=== PATIENT | female | born 1975 | race Hispanic/Latino ===

== ENCOUNTER 2021-05-02 09:50 | Inpatient (IN) | payer MEDICAID ==
--- NOTE | 2021-05-02 10:20 | Event Note ---
ED Screening Note Date of service: 05/02/21 Time: 10:19 ED Screening Note: Patient complains of abdominal pain for a few days History of GERD, states it feels like her GERD flares and that she has been taking aspirin Patient diagnosed with COVID-19 on 04/26 She denies shortness of breath however she is noted to have a O2 saturation of 85% on room air No chest pain per patient This initial assessment/diagnostic orders/clinical plan/treatment(s) is/are subject to change based on patients health status, clinical progression and re- assessment by fellow clinical providers in the ED. Further treatment and workup at subsequent clinical providers discretion. Patient/guardian urged not to elope from the ED as their condition may be serious if not clinically assessed and managed. Initial orders include: Labs Chest x-ray
[2021-05-02] MEDS ORDERED: dexAMETHasone 20 MG/5 ML VIAL IV ONE (10:47)
[2021-05-02] MEDS ORDERED: ONDANSETRON 4 MG/2 ML INJ IV ONE (10:49)
[2021-05-02] MEDS ORDERED: fentaNYL 100 MCG/2 ML INJ IV ONE (10:49)
[2021-05-02] MEDS ORDERED: FAMOTIDINE 20 MG/2 ML INJ IV ONE (10:49)
--- NOTE | 2021-05-02 10:50 | Emergency Department Report ---
HPI - General Chief Complaint: Abdominal Pain PUI?: Yes Time Seen by Provider: 05/02/21 10:14 - HPI HPI: Room 24 The patient is a 45-year-old female present with a chief complaint of abdominal pain. The patient states for the past 2 days she has had pain in the midepigastric and left upper quadrant is been intermittent in nature. Patient also admits to nausea with dry heaves but denies diarrhea. Patient states she has not noticed a relationship with her abdominal pain with food but states she has had pain after taking ibuprofen to treat her fever. Patient states she developed a fever 04/26/2021 when she was diagnosed with Covid. Patient states she had a slight cough at that time but none currently. Patient denies shortness of breath or being on oxygen at home. The patient arrived to triage today she was found to be hypoxic to 85% on room air. Patient currently gets her abdominal pain a score 4/10 ED Past Medical Hx - Past Medical History Hx Hypertension: Yes Hx GERD: Yes Additional medical history: abd ulcers, hypercholesterolemia, porphyria - Surgical History Hx Cholecystectomy: Yes Additional Surgical History: tubal ligation - Family History Family history: no significant - Social History Smoking Status: Never Smoker Substance Use Type: None (Denies illicit drug) - Medications Home Medications: Home Medications Medication Instructions Recorded Confirmed Last Taken Type Sulfamethoxazole/Trimethoprim 07/29/13 07/29/13 Unknown History [Bactrim DS] HYDROcodone/APAP 5-325 [[place] 1 each PO Q6HR PRN #20 tablet 07/30/13 Unknown Rx 5/325 mg] DOXYCYCLINE Hyclate [Vibramycin 100 mg PO BID #20 capsule 11/05/13 Unknown Rx CAP] Pantoprazole [Protonix] 40 mg PO BID #30 tablet 11/05/13 Unknown Rx Ranitidine HCl [Zantac] 300 mg PO QDAY #30 tablet 11/05/13 Unknown Rx ED Review of Systems ROS: Stated complaint: ABD PAIN Other details as noted in HPI Constitutional: fever Eyes: denies: eye pain ENT: denies: throat pain Respiratory: cough. denies: shortness of breath Cardiovascular: denies: chest pain Endocrine: no symptoms reported Gastrointestinal: abdominal pain, nausea. denies: vomiting, diarrhea Genitourinary: denies: dysuria Musculoskeletal: denies: back pain Neurological: denies: headache Physical Exam - Physical Exam Vital Signs: Vital Signs 05/02/21 05/02/21 09:55 10:40 Temperature 99.3 F Pulse Rate 100 H 98 H Respiratory 20 20 Rate Blood Pressure 146/77 Blood Pressure 132/88 [Right] O2 Sat by Pulse 85 97 Oximetry Physical Exam: GENERAL: The patient is well-developed well-nourished female lying on stretcher not appear to be in acute distress. [] HEENT: Normocephalic. Atraumatic. Extraocular motions are intact. Patient has moist mucous membranes. NECK: Supple. Trachea midline CHEST/LUNGS: Clear to auscultation. There is no respiratory distress noted. HEART/CARDIOVASCULAR: Regular. There is no tachycardia. There is no gallop rub or murmur. ABDOMEN: Abdomen is soft, with discomfort to palpation in the left upper quadrant and left lower quadrant. There is no rebound or guarding. Patient has normal bowel sounds. There is no abdominal distention. SKIN: There is no rash. There is no edema. There is no diaphoresis. NEURO: The patient is awake, alert, and oriented. The patient is cooperative. The patient has no focal neurologic deficits. The patient has normal speech. GCS 15 MUSCULOSKELETAL: There is no evidence of acute injury. ED Course Vital Signs 05/02/21 05/02/21 09:55 10:40 Temperature 99.3 F Pulse Rate 100 H 98 H Respiratory 20 20 Rate Blood Pressure 146/77 Blood Pressure 132/88 [Right] O2 Sat by Pulse 85 97 Oximetry ED Medical Decision Making - Lab Data Result diagrams: 05/02/21 10:47 05/02/21 10:47 Laboratory Tests 05/02/21 05/02/21 05/02/21 10:45 10:47 10:47 WBC 6.5 RBC 4.88 Hgb 13.7 Hct 41.8 MCV 86 MCH 28 MCHC 33 RDW 17.1 H Plt Count 208 Lymph % (Auto) 10.0 L [place] % (Auto) 5.8 Eos % (Auto) 0.1 Baso % (Auto) 0.2 Lymph # (Auto) 0.6 L [place] # (Auto) 0.4 Eos # (Auto) 0.0 Baso # (Auto) 0.0 Seg Neutrophils % 83.9 H Seg Neutrophils # 5.4 D-Dimer Sodium 138 Potassium 3.3 L Chloride 95.1 L Carbon Dioxide 31 H Anion Gap 15 BUN 12 Creatinine 0.6 Estimated GFR > 60 BUN/Creatinine Ratio 20 Glucose 112 H Lactic Acid 1.30 Calcium 8.2 L Ferritin Total Bilirubin 0.40 AST 14 ALT 14 Alkaline Phosphatase 130 H Lactate Dehydrogenase C-Reactive Protein Total Protein 7.2 Albumin 3.3 L Albumin/Globulin Ratio 0.8 Lipase 10 L HCG, Qual Urine Color Urine Turbidity Urine pH Ur Specific [place] Urine Protein Urine Glucose (UA) Urine Ketones Urine Blood Urine Nitrite Urine Bilirubin Urine Urobilinogen Ur Leukocyte Esterase Urine WBC (Auto) Urine RBC (Auto) U Epithel Cells (Auto) Urine Mucus 05/02/21 05/02/21 05/02/21 10:47 10:47 10:47 WBC RBC Hgb Hct MCV MCH MCHC RDW Plt Count Lymph % (Auto) [place] % (Auto) Eos % (Auto) Baso % (Auto) Lymph # (Auto) [place] # (Auto) Eos # (Auto) Baso # (Auto) Seg Neutrophils % Seg Neutrophils # D-Dimer 208.60 Sodium Potassium Chloride Carbon Dioxide Anion Gap BUN Creatinine Estimated GFR BUN/Creatinine Ratio Glucose 108 H Lactic Acid Calcium Ferritin Total Bilirubin AST ALT Alkaline Phosphatase Lactate Dehydrogenase 266 H C-Reactive Protein 7.80 H Total Protein Albumin Albumin/Globulin Ratio Lipase HCG, Qual Negative Urine Color Urine Turbidity Urine pH Ur Specific [place] Urine Protein Urine Glucose (UA) Urine Ketones Urine Blood Urine Nitrite Urine Bilirubin Urine Urobilinogen Ur Leukocyte Esterase Urine WBC (Auto) Urine RBC (Auto) U Epithel Cells (Auto) Urine Mucus 05/02/21 05/02/21 10:47 13:26 WBC RBC Hgb Hct MCV MCH MCHC RDW Plt Count Lymph % (Auto) [place] % (Auto) Eos % (Auto) Baso % (Auto) Lymph # (Auto) [place] # (Auto) Eos # (Auto) Baso # (Auto) Seg Neutrophils % Seg Neutrophils # D-Dimer Sodium Potassium Chloride Carbon Dioxide Anion Gap BUN Creatinine Estimated GFR BUN/Creatinine Ratio Glucose Lactic Acid Calcium Ferritin 50.2 Total Bilirubin AST ALT Alkaline Phosphatase Lactate Dehydrogenase C-Reactive Protein Total Protein Albumin Albumin/Globulin Ratio Lipase HCG, Qual Urine Color Yellow Urine Turbidity Clear Urine pH 5.0 Ur Specific [place] 1.020 Urine Protein 100 mg/dl Urine Glucose (UA) Neg Urine Ketones Neg Urine Blood Neg Urine Nitrite Neg Urine Bilirubin Neg Urine Urobilinogen < 2.0 Ur Leukocyte Esterase Neg Urine WBC (Auto) 1.0 Urine RBC (Auto) < 1.0 U Epithel Cells (Auto) < 1.0 Urine Mucus Few - Radiology Data Radiology results: report reviewed (CTA chest, CT abdomen pelvis), image reviewed (CTA chest, CT abdomen pelvis) [facility] [address] [place] [address] Cat Scan Report Signed Patient: MARU ALBRECHT MR#: [id number] : 1975 Acct:[id number] Age/Sex: 45 / F ADM Date: 05/02/21 Loc: ED Attending Dr: Ordering Physician: BIJU CULLEN MD Date of Service: 05/02/21 Procedure(s): CT angio chest Accession Number(s): [id number] cc: BIJU CULLEN MD CTA chest with contrast CT abdomen and pelvis with contrast INDICATION : Left-sided abdominal pain, nausea Hypoxia, Covid positive OMNI 350 100 ML. TECHNIQUE: Axial imaging performed through the chest, with contrast bolus timing set to maximize opacification of the pulmonary arteries. 3-plane MIP reformatted images were obtained. Axial imaging also performed through the abdomen and pelvis with the use of intravenous contrast. All CT scans at this location are performed using CT dose reduction for ALARA by means of automated exposure control. 100 mL of intravenous contrast administered. COMPARISON: CT abdomen/pelvis from 07/30/2013 FINDINGS: CTA chest: Contrast bolus timing is adequate with no filling defect present to suggest PTE. Normal heart size. There are several shoddy mediastinal and hilar lymph nodes. There is also patchy multifocal groun dglass airspace disease and also diffuse nodularity. No pleural effusion identified. Degenerative changes are present in the spine with nothing acute. CT abdomen/pelvis: The liver is unremarkable. Gallbladder surgically absent. The spleen is enlarged but otherwise unremarkable. The pancreas, right adrenal gland, kidneys, and proximal GI tract appear unremarkable. There is a stable left adrenal adenoma. Urinary bladder and reproductive organs are unremarkable with no pelvic free fluid or acute colonic abnormality identified. Mild degenerative changes are present in the spine with nothing acute. There are L5 pars defects with grade 1 anterolisthesis of L5 on S1 and advanced discogenic DJD also at this level. IMPRESSION: 1. Negative for PTE. 2. Moderate patchy multifocal airspace disease suggesting changes of Covid pneumonia; however, there is also underlying nodularity. Recommend follow-up CT chest within 2-3 months to ensure resolution and exclude any underlying process. 3. Nothing acute in the abdomen. Signer Name: Rigoberto Miller MD Signed: 05/02/2021 2:24 PM Workstation Name: [id number] Transcribed By: ANTONIA Dictated By: Rigoberto Miller MD Electronically Authenticated By: Rigoberto Miller MD Signed Date/Time: 05/02/211423 DD/ 14 TD/TT: Print Cancel - Differential Diagnosis Covid pneumonia, hypoxia, peptic ulcer disease, gastritis, diverticulitis Critical care attestation.: If time is entered above; I have spent that time in minutes in the direct care of this critically ill patient, excluding procedure time. ED Disposition Clinical Impression: Hypoxia, Pneumonia due to COVID-19 virus, Abdominal pain Disposition: ADMITTED INPATIENT Is pt being admited?: Yes Does the pt Need Aspirin: No Condition: Fair Instructions: Bacterial Pneumonia (ED), Abdominal Pain (ED) Referrals: PRIMARY CARE, [Primary Care Provider] - 3-5 Days Time of Disposition: 15:01 (Hospitalist called (Dr. Lao))
[2021-05-02 11:18] LABS: Basophils % (Auto) 0.2 % (0.0-1.8); Eosinophils % (Auto) 0.1 % (0.0-4.3); Hematocrit 41.8 % (30.3-42.9); Hemoglobin 13.7 gm/dl (10.1-14.3); Lymphocytes # (Auto) 0.6 K/mm3 (1.2-5.4); Mean Corpuscular HGB Conc 33 % (30-34); Mean Corpuscular Volume 86 fl (79-97); Monocytes # (Auto) 0.4 K/mm3 (0.0-0.8); Monocytes % (Auto) 5.8 % (0.0-7.3); Platelet Count 208 K/mm3 (140-440); Red Blood Count 4.88 M/mm3 (3.65-5.03); Red Cell Distribution Width 17.1 % (13.2-15.2)
[2021-05-02 12:13] LABS: Alanine Aminotransferase 14 units/L (7-56); Albumin 3.3 g/dL (3.9-5); Blood Urea Nitrogen 12 mg/dL (7-17); Calcium 8.2 mg/dL (8.4-10.2); Hemolysis Index 3
[2021-05-02 12:14] LABS: C-Reactive Protein 7.8 mg/dL (0.00-1.30)
[2021-05-02 12:17] LABS: BUN/Creatinine Ratio 20
[2021-05-02 13:54] LABS: Bilirubin,Urine NEG (Negative); Blood,Urine NEG (Negative); Color,Urine Yellow (Yellow); Mucus,Urine FEW /HPF; RBC,Urine < 1.0 /HPF (0.0-6.0); Urobilinogen,Urine < 2.0 mg/dL (<2.0)
--- NOTE | 2021-05-02 14:28 | Cat Scan Report ---
CTA chest with contrast CT abdomen and pelvis with contrast INDICATION : Left-sided abdominal pain, nausea Hypoxia, Covid positive OMNI 350 100 ML. TECHNIQUE: Axial imaging performed through the chest, with contrast bolus timing set to maximize opa cification of the pulmonary arteries. 3-plane MIP reformatted images were obtained. Axial imaging als o performed through the abdomen and pelvis with the use of intravenous contrast. All CT scans at this location are performed using CT dose reduction for ALARA by means of automated exposure control. 100 mL of intravenous contrast administered. COMPARISON: CT abdomen/pelvis from 07/30/2013 FINDINGS: CTA chest: Contrast bolus timing is adequate with no filling defect present to suggest PTE. Normal heart size. T here are several shoddy mediastinal and hilar lymph nodes. There is also patchy multifocal groundglas s airspace disease and also diffuse nodularity. No pleural effusion identified. Degenerative changes are present in the spine with nothing acute. CT abdomen/pelvis: The liver is unremarkable. Gallbladder surgically absent. The spleen is enlarged but otherwise unrema rkable. The pancreas, right adrenal gland, kidneys, and proximal GI tract appear unremarkable. There is a stable left adrenal adenoma. Urinary bladder and reproductive organs are unremarkable with no pelvic free fluid or acute colonic a bnormality identified. Mild degenerative changes are present in the spine with nothing acute. There a re L5 pars defects with grade 1 anterolisthesis of L5 on S1 and advanced discogenic DJD also at this level. IMPRESSION: 1. Negative for PTE. 2. Moderate patchy multifocal airspace disease suggesting changes of Covid pneumonia; however, there is also underlying nodularity. Recommend follow-up CT chest within 2-3 months to ensure resolution an d exclude any underlying process. 3. Nothing acute in the abdomen. Signer Name: Rigoberto Miller MD Signed: 05/02/2021 2:24 PM Workstation Name: [id number]
--- NOTE | 2021-05-02 17:35 | History and Physical Report ---
History of Present Illness Date of examination: 05/02/21 Date of admission: 05/02/21 15:07 Chief complaint: Shortness of breath and fever off-and-on for 5 days Abdominal pain off-and-on for 5 days History of present illness: 45-year-old female with morbid obesity and GERD was recently diagnosed with coronavirus infection around 04/26/2021.. Patient has been taking nonsteroidal anti-inflammatory drugs for fever. Patient has cough and some shortness of breath. In the triage area patient was hypoxic and oxygen saturations were 85% on room air. Patient is not on oxygen at home. No loss of taste or smell. Patient is unvaccinated. Patient is otherwise comfortable. - Past Medical History --Hypertension: Yes --GERD: Yes Additional medical history: abd ulcers, hypercholesterolemia, porphyria - Surgical History --Cholecystectomy: Yes --Additional Surgical History: tubal ligation - Family History --no significant - Social History --Smoking Status: Never Smoker --Substance Use Type: None (Denies illicit drug) - Medications Home Medications: Home Medications Medication Instructions Recorded Confirmed Last Taken Type Sulfamethoxazole/Trimethoprim 07/29/13 07/29/13 Unknown History [Bactrim DS] HYDROcodone/APAP 5-325 [[place] 1 each PO Q6HR PRN #20 tablet 07/30/13 Unknown Rx 5/325 mg] DOXYCYCLINE Hyclate [Vibramycin 100 mg PO BID #20 capsule 11/05/13 Unknown Rx CAP] Pantoprazole [Protonix] 40 mg PO BID #30 tablet 11/05/13 Unknown Rx Ranitidine HCl [Zantac] 300 mg PO QDAY #30 tablet 11/05/13 Unknown Rx Review of Systems ROS: Stated complaint: ABD PAIN Other details as noted in HPI Constitutional: fever Eyes: denies: eye pain ENT: denies: throat pain Respiratory: cough. denies: shortness of breath Cardiovascular: denies: chest pain Endocrine: no symptoms reported Gastrointestinal: abdominal pain, nausea. denies: vomiting, diarrhea Genitourinary: denies: dysuria Musculoskeletal: denies: back pain Neurological: denies: headache Medications and Allergies Allergies Allergy/AdvReac Type Severity Reaction Status Date / Time azithromycin Allergy Rash Verified 05/02/21 09:58 Penicillins Allergy Unknown Verified 07/29/13 23:16 Home Medications Medication Instructions Recorded Confirmed Last Taken Type Sulfamethoxazole/Trimethoprim 07/29/13 07/29/13 Unknown History [Bactrim DS] HYDROcodone/APAP 5-325 [[place] 1 each PO Q6HR PRN #20 tablet 07/30/13 Unknown Rx 5/325 mg] DOXYCYCLINE Hyclate [Vibramycin 100 mg PO BID #20 capsule 11/05/13 Unknown Rx CAP] Pantoprazole [Protonix] 40 mg PO BID #30 tablet 11/05/13 Unknown Rx Ranitidine HCl [Zantac] 300 mg PO QDAY #30 tablet 11/05/13 Unknown Rx Exam - Constitutional Vitals: Temp Pulse Resp BP Pulse Ox 99.3 F 89 22 131/71 99 05/02/21 09:55 05/02/21 16:38 05/02/21 16:38 05/02/21 16:38 05/02/21 16:38 General appearance: Present: mild distress, well-nourished - EENT Eyes: Present: PERRL ENT: hearing intact, clear oral mucosa - Neck Neck: Present: supple, normal ROM - Respiratory Respiratory effort: normal Respiratory: bilateral: CTA - Cardiovascular Heart rate: 78 Rhythm: regular Heart Sounds: Present: S1 & S2. Absent: rub, click - Extremities Extremities: pulses symmetrical, No edema Peripheral Pulses: within normal limits - Abdominal General gastrointestinal: Present: soft, non-tender, non-distended, normal bowel sounds Female genitourinary: Present: normal - Rectal Rectal Exam: deferred - Integumentary Integumentary: Present: clear, warm, dry - Musculoskeletal Musculoskeletal: gait normal, strength equal bilaterally - Psychiatric Psychiatric: appropriate mood/affect, intact judgment & insight - Neurologic Neurologic: CNII-XII intact, moves all extremities - Allied Health Allied health notes reviewed: nursing, case management Results - Labs CBC & Chem 7: 05/03/21 04:17 05/03/21 04:17 Labs: Laboratory Last Values WBC 6.5 K/mm3 (4.5-11.0) 05/02/21 10:47 RBC 4.88 M/mm3 (3.65-5.03) 05/02/21 10:47 Hgb 13.7 gm/dl (10.1-14.3) 05/02/21 10:47 Hct 41.8 % (30.3-42.9) 05/02/21 10:47 MCV 86 fl (79-97) 05/02/21 10:47 MCH 28 pg (28-32) 05/02/21 10:47 MCHC 33 % (30-34) 05/02/21 10:47 RDW 17.1 % (13.2-15.2) H 05/02/21 10:47 Plt Count 208 K/mm3 (140-440) 05/02/21 10:47 Lymph % (Auto) 10.0 % (13.4-35.0) L 05/02/21 10:47 [place] % (Auto) 5.8 % (0.0-7.3) 05/02/21 10:47 Eos % (Auto) 0.1 % (0.0-4.3) 05/02/21 10:47 Baso % (Auto) 0.2 % (0.0-1.8) 05/02/21 10:47 Lymph # (Auto) 0.6 K/mm3 (1.2-5.4) L 05/02/21 10:47 [place] # (Auto) 0.4 K/mm3 (0.0-0.8) 05/02/21 10:47 Eos # (Auto) 0.0 K/mm3 (0.0-0.4) 05/02/21 10:47 Baso # (Auto) 0.0 K/mm3 (0.0-0.1) 05/02/21 10:47 Seg Neutrophils % 83.9 % (40.0-70.0) H 05/02/21 10:47 Seg Neutrophils # 5.4 K/mm3 (1.8-7.7) 05/02/21 10:47 D-Dimer 208.60 ng/mlDDU (0-234) 05/02/21 10:47 Sodium 138 mmol/L (137-145) 05/02/21 10:47 Potassium 3.3 mmol/L (3.6-5.0) L 05/02/21 10:47 Chloride 95.1 mmol/L (98-107) L 05/02/21 10:47 Carbon Dioxide 31 mmol/L (22-30) H 05/02/21 10:47 Anion Gap 15 mmol/L 05/02/21 10:47 BUN 12 mg/dL (7-17) 05/02/21 10:47 Creatinine 0.6 mg/dL (0.6-1.2) 05/02/21 10:47 Estimated GFR > 60 ml/min 05/02/21 10:47 BUN/Creatinine Ratio 20 % 05/02/21 10:47 Glucose 108 mg/dL (65-100) H 05/02/21 10:47 Glucose 112 mg/dL (65-100) H 05/02/21 10:47 Lactic Acid 1.30 mmol/L (0.7-2.0) 05/02/21 10:45 Calcium 8.2 mg/dL (8.4-10.2) L 05/02/21 10:47 Ferritin 50.2 ng/mL (10.0-200.0) 05/02/21 10:47 Total Bilirubin 0.40 mg/dL (0.1-1.2) 05/02/21 10:47 AST 14 units/L (5-40) 05/02/21 10:47 ALT 14 units/L (7-56) 05/02/21 10:47 Alkaline Phosphatase 130 units/L (35-129) H 05/02/21 10:47 Lactate Dehydrogenase 266 units/L (91-180) H 05/02/21 10:47 C-Reactive Protein 7.80 mg/dL (0.00-1.30) H 05/02/21 10:47 Total Protein 7.2 g/dL (6.3-8.2) 05/02/21 10:47 Albumin 3.3 g/dL (3.9-5) L 05/02/21 10:47 Albumin/Globulin Ratio 0.8 % 05/02/21 10:47 Lipase 10 units/L (13-60) L 05/02/21 10:47 HCG, Qual Negative (Negative) 05/02/21 10:47 Urine Color Yellow (Yellow) 05/02/21 13:26 Urine Turbidity Clear (Clear) 05/02/21 13:26 Urine pH 5.0 (5.0-7.0) 05/02/21 13:26 Ur Specific [place] 1.020 (1.003-1.030) 05/02/21 13:26 Urine Protein 100 mg/dl mg/dL (Negative) 05/02/21 13:26 Urine Glucose (UA) Neg mg/dL (Negative) 05/02/21 13:26 Urine Ketones Neg mg/dL (Negative) 05/02/21 13:26 Urine Blood Neg (Negative) 05/02/21 13:26 Urine Nitrite Neg (Negative) 05/02/21 13:26 Urine Bilirubin Neg (Negative) 05/02/21 13:26 Urine Urobilinogen < 2.0 mg/dL (<2.0) 05/02/21 13:26 Ur Leukocyte Esterase Neg (Negative) 05/02/21 13:26 Urine WBC (Auto) 1.0 /HPF (0.0-6.0) 05/02/21 13:26 Urine RBC (Auto) < 1.0 /HPF (0.0-6.0) 05/02/21 13:26 U Epithel Cells (Auto) < 1.0 /HPF (0-13.0) 05/02/21 13:26 Urine Mucus Few /HPF 05/02/21 13:26 Microbiology: Microbiology 05/02/21 10:45 Peripheral/Venous Blood Culture - Preliminary Culture in Progress 05/02/21 10:45 Peripheral/Venous Blood Culture - Preliminary Culture in Progress - Imaging and Cardiology CT scan - abdomen: report reviewed CT scan - chest: report reviewed Imaging and Cardiology: Abdomen/pelvis CT Negative for pulmonary embolism Moderate patchy multifocal airspace disease suggesting changes of Covid pneumoni a however there is also underlying nodularity. Recommend follow-up CT chest with 2 to 5 months to assure resolution and exclude any underlying process. Chest CTA Same as above Assessment and Plan Advance Directives: Yes (Full code) VTE prophylaxis?: Chemical Plan of care discussed with patient/family: Yes - Patient Problems (1) Acute respiratory failure with hypoxia Current Visit: Yes Status: Acute Plan to address problem: Patient is hypoxic with saturations of 84% on room air Titrate oxygen to keep to keep O2 sats above 92 Respiratory assessment and treatment protocol initiated IV Decadron initiated for possible coronavirus infection (2) SIRS (systemic inflammatory response syndrome) Current Visit: Yes Status: Acute Plan to address problem: Patient clinical picture consistent with Sirs CRP and LDH are elevated D-dimer and ferritin are normal (3) Bilateral pneumonia Current Visit: Yes Status: Acute Plan to address problem: Patient initiated on IV Zithromax and IV ceftriaxone Procalcitonin level is normal Will defer to ID regarding discontinuing the antibiotics (4) Pneumonia due to COVID-19 virus Current Visit: Yes Status: Acute Plan to address problem: Possible Covid infection Patient tested positive on April 26 We will repeat the coronavirus PCR test (5) Hypokalemia Current Visit: Yes Status: Acute Plan to address problem: Supplemented (6) HTN (hypertension) Current Visit: Yes Status: Chronic Qualifiers: Hypertension type: primary hypertension Qualified Code(s): I10 - Essential (primary) hypertension Plan to address problem: Not on any home antihypertensives We will trend the blood pressure and initiate antihypertensives as necessary (7) GERD (gastroesophageal reflux disease) Current Visit: Yes Status: Chronic Qualifiers: Esophagitis presence: without esophagitis Qualified Code(s): K21.9 - Gastro-esophageal reflux disease without esophagitis Plan to address problem: On Protonix (8) Morbid obesity Current Visit: Yes Status: Chronic Plan to address problem: Patient to be given referral to bariatric surgery as outpatient to Dr. Arauz (9) DVT prophylaxis Current Visit: Yes Status: Acute Plan to address problem: On Lovenox and GI prophylaxis
[2021-05-02] MEDS ORDERED: ACETAMINOPHEN 325 MG TAB PO PRN (17:43)
[2021-05-02] MEDS ORDERED: ONDANSETRON 4 MG/2 ML INJ IV PRN ×2 (17:43→17:46)
[2021-05-02] MEDS ORDERED: HYDROmorphone 1 MG/1 ML INJ IV PRN (17:46)
[2021-05-02] MEDS ORDERED: oxyCODONE /ACETAMINOPHEN 5-325MG TAB PO PRN (17:46)
[2021-05-02] MEDS ORDERED: METOCLOPRAMIDE 10 MG/2 ML INJ IV PRN (17:46)
[2021-05-02] MEDS ORDERED: SODIUM CHLORIDE 0.9% 1000 ML 1,000 ML IV SCH (18:00)
[2021-05-02] MEDS: ENOXAPARIN 40 MG/0.4 ML INJ SUB-Q SCH (18:43)
[2021-05-02] MEDS: PANTOPRAZOLE 40 MG TAB PO SCH (22:33)
[2021-05-02] MEDS: ACETAMINOPHEN 325 MG TAB PO PRN (22:33)
[2021-05-03 05:04] LABS: Basophils % (Auto) 0.1 % (0.0-1.8); Hematocrit 45.9 % (30.3-42.9); Hemoglobin 14.4 gm/dl (10.1-14.3); Lymphocytes # (Auto) 0.6 K/mm3 (1.2-5.4); Lymphocytes % (Auto) 8.1 % (13.4-35.0); Mean Corpuscular HGB Conc 31 % (30-34); Mean Corpuscular Volume 88 fl (79-97); Monocytes # (Auto) 0.4 K/mm3 (0.0-0.8); Monocytes % (Auto) 5.7 % (0.0-7.3); Platelet Count 242 K/mm3 (140-440); Red Blood Count 5.22 M/mm3 (3.65-5.03); Red Cell Distribution Width 17.4 % (13.2-15.2)
[2021-05-03 05:27] LABS: Alanine Aminotransferase 14 units/L (7-56); Albumin 3.7 g/dL (3.9-5); BUN/Creatinine Ratio 18; Blood Urea Nitrogen 11 mg/dL (7-17); Calcium 8.4 mg/dL (8.4-10.2); Hemolysis Index 2
[2021-05-03] MEDS ORDERED: POTASSIUM CHLORIDE ER 20 MEQ TAB PO ONE (06:44)
--- NOTE | 2021-05-03 08:39 | Progress Note ---
Assessment and Plan Assessment and plan: (1) Acute respiratory failure with hypoxia Current Visit: Yes Status: Acute Plan to address problem: Patient is hypoxic with saturations of 84% on room air Titrate oxygen to keep to keep O2 sats above 92 Respiratory assessment and treatment protocol initiated IV Decadron initiated for possible coronavirus infection (2) SIRS (systemic inflammatory response syndrome) Current Visit: Yes Status: Acute Plan to address problem: Patient clinical picture consistent with Sirs CRP and LDH are elevated D-dimer and ferritin are normal (3) Bilateral pneumonia Current Visit: Yes Status: Acute Plan to address problem: Patient initiated on IV Zithromax and IV ceftriaxone Procalcitonin level is normal Will defer to ID regarding discontinuing the antibiotics (4) Pneumonia due to COVID-19 virus Current Visit: Yes Status: Acute Plan to address problem: Possible Covid infection Patient tested positive on April 26 We will repeat the coronavirus PCR test (5) Hypokalemia Current Visit: Yes Status: Acute Plan to address problem: Supplemented (6) HTN (hypertension) Current Visit: Yes Status: Chronic Qualifiers: Hypertension type: primary hypertension Qualified Code(s): I10 - Essential (primary) hypertension Plan to address problem: Not on any home antihypertensives We will trend the blood pressure and initiate antihypertensives as necessary (7) GERD (gastroesophageal reflux disease) Current Visit: Yes Status: Chronic Qualifiers: Esophagitis presence: without esophagitis Qualified Code(s): K21.9 - Gastro-esophageal reflux disease without esophagitis Plan to address problem: On Protonix (8) Morbid obesity Current Visit: Yes Status: Chronic Plan to address problem: Patient to be given referral to bariatric surgery as outpatient to Dr. Arauz (9) DVT prophylaxis Current Visit: Yes Status: Acute Plan to address problem: On Lovenox and GI prophylaxis 05/03 -Covid test pending -Patient is on Decadron, vitamin D, zinc, ascorbic acid -ID consulted -Obesity hypoventilation syndrome; patient uses CPAP at home and I ordered it -Patient was on 4 L of oxygen and titrate oxygen as tolerated. History Interval history: Patient was seen and evaluated this morning Patient was asleep and was snoring I woke her up and she says she is feeling okay Patient was on 4 L of oxygen She says she uses CPAP at home Hospitalist Physical - Physical exam Narrative exam: Not in cardiopulmonary distress. The patient is morbidly obese. Vital signs as documented. Head exam is unremarkable. No scleral icterus . Neck is without jugular venous distension, thyromegaly, or carotid bruits. Lungs are clear to auscultation. Cardiac exam reveals regular rate and Rhythm. Abdominal exam reveals normal bowel sounds, nontender, no organomegaly. Extremities are nonedematous and both femoral and pedal pulses are normal. 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 - Constitutional Vitals: Temp Pulse Resp BP Pulse Ox 98.2 F 94 H 16 136/79 93 05/03/21 06:53 05/03/21 06:31 05/03/21 00:31 05/03/21 06:31 05/03/21 06:31 General appearance: Present: mild distress, well-nourished Results - Labs CBC & Chem 7: 05/03/21 04:17 05/03/21 04:17 Labs: Laboratory Last Values WBC 7.3 K/mm3 (4.5-11.0) 05/03/21 04:17 RBC 5.22 M/mm3 (3.65-5.03) H 05/03/21 04:17 Hgb 14.4 gm/dl (10.1-14.3) H 05/03/21 04:17 Hct 45.9 % (30.3-42.9) H 05/03/21 04:17 MCV 88 fl (79-97) 05/03/21 04:17 MCH 28 pg (28-32) 05/03/21 04:17 MCHC 31 % (30-34) 05/03/21 04:17 RDW 17.4 % (13.2-15.2) H 05/03/21 04:17 Plt Count 242 K/mm3 (140-440) 05/03/21 04:17 Lymph % (Auto) 8.1 % (13.4-35.0) L 05/03/21 04:17 [place] % (Auto) 5.7 % (0.0-7.3) 05/03/21 04:17 Eos % (Auto) 0.0 % (0.0-4.3) 05/03/21 04:17 Baso % (Auto) 0.1 % (0.0-1.8) 05/03/21 04:17 Lymph # (Auto) 0.6 K/mm3 (1.2-5.4) L 05/03/21 04:17 [place] # (Auto) 0.4 K/mm3 (0.0-0.8) 05/03/21 04:17 Eos # (Auto) 0.0 K/mm3 (0.0-0.4) 05/03/21 04:17 Baso # (Auto) 0.0 K/mm3 (0.0-0.1) 05/03/21 04:17 Seg Neutrophils % 86.1 % (40.0-70.0) H 05/03/21 04:17 Seg Neutrophils # 6.3 K/mm3 (1.8-7.7) 05/03/21 04:17 D-Dimer 208.60 ng/mlDDU (0-234) 05/02/21 10:47 Sodium 141 mmol/L (137-145) 05/03/21 04:17 Potassium 3.9 mmol/L (3.6-5.0) 05/03/21 04:17 Chloride 96.3 mmol/L (98-107) L 05/03/21 04:17 Carbon Dioxide 35 mmol/L (22-30) H 05/03/21 04:17 Anion Gap 14 mmol/L 05/03/21 04:17 BUN 11 mg/dL (7-17) 05/03/21 04:17 Creatinine 0.6 mg/dL (0.6-1.2) 05/03/21 04:17 Estimated GFR > 60 ml/min 05/03/21 04:17 BUN/Creatinine Ratio 18 % 05/03/21 04:17 Glucose 144 mg/dL (65-100) H 05/03/21 04:17 Hemoglobin A1c 6.4 % (4-6) H 05/03/21 04:17 Lactic Acid 1.30 mmol/L (0.7-2.0) 05/02/21 10:45 Calcium 8.4 mg/dL (8.4-10.2) 05/03/21 04:17 Ferritin 50.2 ng/mL (10.0-200.0) 05/02/21 10:47 Total Bilirubin 0.30 mg/dL (0.1-1.2) 05/03/21 04:17 AST 15 units/L (5-40) 05/03/21 04:17 ALT 14 units/L (7-56) 05/03/21 04:17 Alkaline Phosphatase 139 units/L (35-129) H 05/03/21 04:17 Lactate Dehydrogenase 266 units/L (91-180) H 05/02/21 10:47 C-Reactive Protein 7.80 mg/dL (0.00-1.30) H 05/02/21 10:47 Total Protein 7.7 g/dL (6.3-8.2) 05/03/21 04:17 Albumin 3.7 g/dL (3.9-5) L 05/03/21 04:17 Albumin/Globulin Ratio 0.9 % 05/03/21 04:17 Lipase 10 units/L (13-60) L 05/02/21 10:47 Procalcitonin < 0.05 ng/mL (<0.15) 05/02/21 10:46 HCG, Qual Negative (Negative) 05/02/21 10:47 Urine Color Yellow (Yellow) 05/02/21 13:26 Urine Turbidity Clear (Clear) 05/02/21 13:26 Urine pH 5.0 (5.0-7.0) 05/02/21 13:26 Ur Specific [place] 1.020 (1.003-1.030) 05/02/21 13:26 Urine Protein 100 mg/dl mg/dL (Negative) 05/02/21 13:26 Urine Glucose (UA) Neg mg/dL (Negative) 05/02/21 13:26 Urine Ketones Neg mg/dL (Negative) 05/02/21 13:26 Urine Blood Neg (Negative) 05/02/21 13:26 Urine Nitrite Neg (Negative) 05/02/21 13:26 Urine Bilirubin Neg (Negative) 05/02/21 13:26 Urine Urobilinogen < 2.0 mg/dL (<2.0) 05/02/21 13:26 Ur Leukocyte Esterase Neg (Negative) 05/02/21 13:26 Urine WBC (Auto) 1.0 /HPF (0.0-6.0) 05/02/21 13:26 Urine RBC (Auto) < 1.0 /HPF (0.0-6.0) 05/02/21 13:26 U Epithel Cells (Auto) < 1.0 /HPF (0-13.0) 05/02/21 13:26 Urine Mucus Few /HPF 05/02/21 13:26 Microbiology: Microbiology 05/02/21 10:45 Peripheral/Venous Blood Culture - Preliminary Culture in Progress 05/02/21 10:45 Peripheral/Venous Blood Culture - Preliminary Culture in Progress Active Medications - Current Medications Current Medications: Generic Name Dose Route Start Last Admin Trade Name Freq PRN Reason Stop Dose Admin Acetaminophen 650 mg 05/02/21 17:46 05/02/21 22:33 Acetaminophen 325 Mg Tab PO 650 mg Q4H PRN Administration Pain MILD(1-3)/Fever >100.5/HOYT Enoxaparin Sodium 40 mg 05/02/21 19:00 05/02/21 18:43 Enoxaparin 40 Mg/0.4 Ml Inj SUB-Q 40 mg QDAY KOBY Administration Hydromorphone HCl 0.5 mg 05/02/21 17:46 Hydromorphone 1 Mg/1 Ml Inj IV Q3H PRN Pain , Severe (7-10) Sodium Chloride 1,000 mls @ 75 mls/hr 05/02/21 18:00 05/02/21 22:33 Nacl 0.9% 1000 Ml IV 05/03/21 17:59 75 mls/hr DIRECT KOBY Administration Metoclopramide HCl 10 mg 05/02/21 17:46 Metoclopramide 10 Mg/2 Ml Inj IV Q6H PRN Nausea And Vomiting Ondansetron HCl 4 mg 05/02/21 17:46 Ondansetron 4 Mg/2 Ml Inj IV Q8H PRN Nausea And Vomiting Oxycodone/Acetaminophen 1 tab 05/02/21 17:46 Oxycodone /Acetaminophen 5-325mg Tab PO Q6H PRN Pain, Moderate (4-6) Pantoprazole Sodium 40 mg 05/02/21 22:00 05/02/21 22:33 Pantoprazole 40 Mg Tab PO 40 mg BID KOBY Administration Sodium Chloride 10 ml 05/02/21 17:43 Sodium Chloride 0.9% 10 Ml Flush Syringe IV PRN PRN LINE FLUSH Sodium Chloride 10 ml 05/02/21 22:00 05/02/21 23:01 Sodium Chloride 0.9% 10 Ml Flush Syringe IV 10 ml BID KOBY Administration Sodium Chloride 10 ml 05/02/21 17:46 Sodium Chloride 0.9% 10 Ml Flush Syringe IV PRN PRN LINE FLUSH
[2021-05-03] MEDS: CHOLECALCIFEROL (VIT D3) 1000 UNIT (25 mcg) TAB PO SCH (12:01)
[2021-05-03] MEDS: ASCORBIC ACID 500 MG TAB PO SCH ×2 (12:01→23:21)
[2021-05-03] MEDS: ZINC SULFATE 220 MG CAP PO SCH (12:01)
[2021-05-03] MEDS: dexAMETHasone 4 MG/ML VIAL IV SCH (12:01)
[2021-05-03] MEDS: PANTOPRAZOLE 40 MG TAB PO SCH ×2 (12:01→23:21)
[2021-05-03] MEDS: ENOXAPARIN 40 MG/0.4 ML INJ SUB-Q SCH ×2 (12:03→23:21)
--- NOTE | 2021-05-03 12:28 | Electrocardiograph Report ---
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
--- NOTE | 2021-05-03 18:00 | Consultation ---
History of Present Illness - Reason for Consult Consult date: 05/03/21 - History of Present Illness 45-year-old female past medical history morbid obesity, GERD admitted with COVID-19 infection that was diagnosed on 04/26/2021. She complained of cough and shortness of breath on admission, and said to be hypoxic on presentation. She is not vaccinated against Covid. Afebrile with T-max 100.1 with a normal white count. Covid positive. Normal renal function. Normal procalcitonin. Imaging personally reviewed: Chest abdomen pelvis CT: No pulmonary lesion. Moderate patchy multifocal airs pace disease. Review of systems: Deferred to reduce to the risk of transmission of COVID-19 Medications and Allergies Allergies Allergy/AdvReac Type Severity Reaction Status Date / Time azithromycin Allergy Rash Verified 05/02/21 09:58 Penicillins Allergy Unknown Verified 07/29/13 23:16 Home Medications Medication Instructions Recorded Confirmed Last Taken Type Ascorbic Acid [Vitamin C] 500 mg PO QDAY 05/03/21 05/03/21 Unknown History Aspirin [Aspirin BABY CHEW TAB] 81 mg PO QDAY 05/03/21 05/03/21 Unknown History AtorvaSTATin [Lipitor] 40 mg PO QHS 05/03/21 05/03/21 Unknown History Furosemide [Lasix] 20 mg PO TID 05/03/21 05/03/21 Unknown History Ibuprofen [Motrin] 800 mg PO Q8HR PRN 05/03/21 05/03/21 Unknown History Losartan [Cozaar] 50 mg PO QDAY 05/03/21 05/03/21 Unknown History Active Meds: Active Medications Acetaminophen (Acetaminophen 325 Mg Tab) 650 mg PO Q4H PRN PRN Reason: Pain MILD(1-3)/Fever >100.5/HOYT Last Admin: 05/02/21 22:33 Dose: 650 mg Documented by: Ascorbic Acid (Ascorbic Acid 500 Mg Tab) 500 mg PO BID [facility] Last Admin: 05/03/21 12:01 Dose: 500 mg Documented by: Cholecalciferol (Cholecalciferol (Vit D3) 1000 Unit (25 Mcg) Tab) 1,000 unit PO QDAY [facility] Last Admin: 05/03/21 12:01 Dose: 1,000 unit Documented by: Dexamethasone (Dexamethasone 4 Mg/Ml Vial) 8 mg IV DAILY [facility] Last Admin: 05/03/21 12:01 Dose: 8 mg Documented by: Enoxaparin Sodium (Enoxaparin 40 Mg/0.4 Ml Inj) 40 mg SUB-Q BID [facility] Metoclopramide HCl (Metoclopramide 10 Mg/2 Ml Inj) 10 mg IV Q6H PRN PRN Reason: Nausea And Vomiting Ondansetron HCl (Ondansetron 4 Mg/2 Ml Inj) 4 mg IV Q8H PRN PRN Reason: Nausea And Vomiting Last Admin: 05/03/21 08:41 Dose: 4 mg Documented by: Oxycodone/Acetaminophen (Oxycodone /Acetaminophen 5-325mg Tab) 1 tab PO Q6H PRN PRN Reason: Pain, Moderate (4-6) Pantoprazole Sodium (Pantoprazole 40 Mg Tab) 40 mg PO BID [facility] Last Admin: 05/03/21 12:01 Dose: 40 mg Documented by: Sodium Chloride (Sodium Chloride 0.9% 10 Ml Flush Syringe) 10 ml IV PRN PRN PRN Reason: LINE FLUSH Sodium Chloride (Sodium Chloride 0.9% 10 Ml Flush Syringe) 10 ml IV BID [facility] Last Admin: 05/03/21 12:01 Dose: 10 ml Documented by: Sodium Chloride (Sodium Chloride 0.9% 10 Ml Flush Syringe) 10 ml IV PRN PRN PRN Reason: LINE FLUSH Zinc Sulfate (Zinc Sulfate 220 Mg Cap) 220 mg PO QDAY [facility] Last Admin: 05/03/21 12:01 Dose: 220 mg Documented by: Physical Examination - Physical Exam Narrative exam: Physical exam deferred to reduce risk of transmission of COVID-19. Please refer to primary team's note. - Constitutional Vitals: Vital Signs Temp Pulse Resp BP Pulse Ox 98.0 F 88 20 134/75 94 05/03/21 16:33 05/03/21 16:33 05/03/21 16:33 05/03/21 16:33 05/03/21 16:33 Temperature -Last 24 Hours Temperature 98.0 F Temperature 98.0 F Temperature 99.0 F Temperature 98.2 F Temperature 100.1 F Results - Labs CBC & Chem 7: 05/03/21 04:17 05/03/21 04:17 Labs: Abnormal lab results 05/03/21 05/03/21 05/03/21 Range/Units 04:17 04:17 04:17 RBC 5.22 H (3.65-5.03) M/mm3 Hgb 14.4 H (10.1-14.3) gm/dl Hct 45.9 H (30.3-42.9) % RDW 17.4 H (13.2-15.2) % Lymph % (Auto) 8.1 L (13.4-35.0) % Lymph # (Auto) 0.6 L (1.2-5.4) K/mm3 Seg Neutrophils % 86.1 H (40.0-70.0) % Chloride 96.3 L (98-107) mmol/L Carbon Dioxide 35 H (22-30) mmol/L Glucose 144 H (65-100) mg/dL Hemoglobin A1c 6.4 H (4-6) % Alkaline Phosphatase 139 H (35-129) units/L Albumin 3.7 L (3.9-5) g/dL Coronavirus (PCR) (Negative) 05/03/21 Range/Units 08:30 RBC (3.65-5.03) M/mm3 Hgb (10.1-14.3) gm/dl Hct (30.3-42.9) % RDW (13.2-15.2) % Lymph % (Auto) (13.4-35.0) % Lymph # (Auto) (1.2-5.4) K/mm3 Seg Neutrophils % (40.0-70.0) % Chloride (98-107) mmol/L Carbon Dioxide (22-30) mmol/L Glucose (65-100) mg/dL Hemoglobin A1c (4-6) % Alkaline Phosphatase (35-129) units/L Albumin (3.9-5) g/dL Coronavirus (PCR) Positive A (Negative) Assessment and Plan Cultures: Blood culture no growth so far Covid PCR: Positive A/P: 45 old female past medical history morbid obesity admitted with COVID-19. #Severe COVID-19 pneumonia: Patient presented with a week of symptoms, chest x- ray with diffuse bilateral infiltrates, admission O2 sats on room air. Inflammatory markers elevated #Acute hypoxemic respiratory failure: Likely secondary to COVID-19 infection. Currently on #Morbid obesity #Penicillin allergy: Tolerating ceftriaxone Recs: -Dexamethasone 6 mg IV/PO daily for 10 days -Remdesivir 200 mg IV q day x 1 followed by 100 mg IV q day x 4 days -Obtain q48-72h inflammatory markers - ferritin, Ddimer, CRP, LDH -Normal procalcitonin, no need for antibiotics. -Anticoagulation per hospital protocol -Proning as able Thank you for the consult, we will continue to follow. Valentine Rogers MD [facility] O: [phone] F: [phone]
[2021-05-03] MEDS ORDERED: REMDESIVIR 200 MG in SODIUM CHLORIDE 0.9% 250ML 250 ML IV ONE (19:00)
[2021-05-03] MEDS: SODIUM CHLORIDE 0.9% 50 ML IVPB IV SCH (23:20)
[2021-05-04] MEDS: ACETAMINOPHEN 325 MG TAB PO PRN (05:49)
[2021-05-04 06:46] LABS: Alanine Aminotransferase 14 units/L (7-56); Albumin 3.6 g/dL (3.9-5); Blood Urea Nitrogen 15 mg/dL (7-17); Calcium 8.6 mg/dL (8.4-10.2); Hemolysis Index 26
[2021-05-04 06:51] LABS: BUN/Creatinine Ratio 25
--- NOTE | 2021-05-04 09:14 | Progress Note ---
Assessment and Plan Assessment and plan: (1) Acute respiratory failure with hypoxia Current Visit: Yes Status: Acute Plan to address problem: Patient is hypoxic with saturations of 84% on room air Titrate oxygen to keep to keep O2 sats above 92 Respiratory assessment and treatment protocol initiated IV Decadron initiated for possible coronavirus infection (2) SIRS (systemic inflammatory response syndrome) Current Visit: Yes Status: Acute Plan to address problem: Patient clinical picture consistent with Sirs CRP and LDH are elevated D-dimer and ferritin are normal (3) Bilateral pneumonia Current Visit: Yes Status: Acute Plan to address problem: Patient initiated on IV Zithromax and IV ceftriaxone Procalcitonin level is normal Will defer to ID regarding discontinuing the antibiotics (4) Pneumonia due to COVID-19 virus Current Visit: Yes Status: Acute Plan to address problem: Possible Covid infection Patient tested positive on April 26 We will repeat the coronavirus PCR test (5) Hypokalemia Current Visit: Yes Status: Acute Plan to address problem: Supplemented (6) HTN (hypertension) Current Visit: Yes Status: Chronic Qualifiers: Hypertension type: primary hypertension Qualified Code(s): I10 - Essential (primary) hypertension Plan to address problem: Not on any home antihypertensives We will trend the blood pressure and initiate antihypertensives as necessary (7) GERD (gastroesophageal reflux disease) Current Visit: Yes Status: Chronic Qualifiers: Esophagitis presence: without esophagitis Qualified Code(s): K21.9 - Gastro-esophageal reflux disease without esophagitis Plan to address problem: On Protonix (8) Morbid obesity Current Visit: Yes Status: Chronic Plan to address problem: Patient to be given referral to bariatric surgery as outpatient to Dr. Arauz (9) DVT prophylaxis Current Visit: Yes Status: Acute Plan to address problem: On Lovenox and GI prophylaxis 05/03 -Covid test pending -Patient is on Decadron, vitamin D, zinc, ascorbic acid -ID consulted -Obesity hypoventilation syndrome; patient uses CPAP at home and I ordered it -Patient was on 4 L of oxygen and titrate oxygen as tolerated. 05/04 -Covid test was positive and patient is on remdesivir and Decadron. -Patient is on 4 L of oxygen and wean off tolerated -ID consult appreciated -Patient is on CPAP for STELLA History Interval history: Patient was seen and evaluated this morning Patient was on 4 L of oxygen CPAP at night Hospitalist Physical - Physical exam Narrative exam: Not in cardiopulmonary distress. The patient is morbidly obese. Vital signs as documented. Head exam is unremarkable. No scleral icterus . Neck is without jugular venous distension, thyromegaly, or carotid bruits. Lungs are clear to auscultation. Cardiac exam reveals regular rate and Rhythm. Abdominal exam reveals normal bowel sounds, nontender, no organomegaly. Extremities are nonedematous and both femoral and pedal pulses are normal. 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 - Constitutional Vitals: Temp Pulse Resp BP Pulse Ox 98.4 F 88 18 145/80 96 05/04/21 05:44 05/04/21 05:44 05/04/21 05:44 05/04/21 05:44 05/04/21 05:44 General appearance: Present: mild distress, well-nourished Results - Labs CBC & Chem 7: 05/03/21 04:17 05/04/21 05:30 Labs: Laboratory Last Values WBC 7.3 K/mm3 (4.5-11.0) 05/03/21 04:17 RBC 5.22 M/mm3 (3.65-5.03) H 05/03/21 04:17 Hgb 14.4 gm/dl (10.1-14.3) H 05/03/21 04:17 Hct 45.9 % (30.3-42.9) H 05/03/21 04:17 MCV 88 fl (79-97) 05/03/21 04:17 MCH 28 pg (28-32) 05/03/21 04:17 MCHC 31 % (30-34) 05/03/21 04:17 RDW 17.4 % (13.2-15.2) H 05/03/21 04:17 Plt Count 242 K/mm3 (140-440) 05/03/21 04:17 Lymph % (Auto) 8.1 % (13.4-35.0) L 05/03/21 04:17 [place] % (Auto) 5.7 % (0.0-7.3) 05/03/21 04:17 Eos % (Auto) 0.0 % (0.0-4.3) 05/03/21 04:17 Baso % (Auto) 0.1 % (0.0-1.8) 05/03/21 04:17 Lymph # (Auto) 0.6 K/mm3 (1.2-5.4) L 05/03/21 04:17 [place] # (Auto) 0.4 K/mm3 (0.0-0.8) 05/03/21 04:17 Eos # (Auto) 0.0 K/mm3 (0.0-0.4) 05/03/21 04:17 Baso # (Auto) 0.0 K/mm3 (0.0-0.1) 05/03/21 04:17 Seg Neutrophils % 86.1 % (40.0-70.0) H 05/03/21 04:17 Seg Neutrophils # 6.3 K/mm3 (1.8-7.7) 05/03/21 04:17 D-Dimer 208.60 ng/mlDDU (0-234) 05/02/21 10:47 Sodium 142 mmol/L (137-145) 05/04/21 05:30 Potassium 3.7 mmol/L (3.6-5.0) 05/04/21 05:30 Chloride 95.1 mmol/L (98-107) L 05/04/21 05:30 Carbon Dioxide 38 mmol/L (22-30) H 05/04/21 05:30 Anion Gap 13 mmol/L 05/04/21 05:30 BUN 15 mg/dL (7-17) 05/04/21 05:30 Creatinine 0.6 mg/dL (0.6-1.2) 05/04/21 05:30 Estimated GFR > 60 ml/min 05/04/21 05:30 BUN/Creatinine Ratio 25 % 05/04/21 05:30 Glucose 120 mg/dL (65-100) H 05/04/21 05:30 Hemoglobin A1c 6.4 % (4-6) H 05/03/21 04:17 Lactic Acid 1.30 mmol/L (0.7-2.0) 05/02/21 10:45 Calcium 8.6 mg/dL (8.4-10.2) 05/04/21 05:30 Ferritin 50.2 ng/mL (10.0-200.0) 05/02/21 10:47 Total Bilirubin 0.30 mg/dL (0.1-1.2) 05/04/21 05:30 AST 18 units/L (5-40) 05/04/21 05:30 ALT 14 units/L (7-56) 05/04/21 05:30 Alkaline Phosphatase 117 units/L (35-129) 05/04/21 05:30 Lactate Dehydrogenase 266 units/L (91-180) H 05/02/21 10:47 C-Reactive Protein 7.80 mg/dL (0.00-1.30) H 05/02/21 10:47 Total Protein 7.4 g/dL (6.3-8.2) 05/04/21 05:30 Albumin 3.6 g/dL (3.9-5) L 05/04/21 05:30 Albumin/Globulin Ratio 0.9 % 05/04/21 05:30 Lipase 10 units/L (13-60) L 05/02/21 10:47 Procalcitonin < 0.05 ng/mL (<0.15) 05/02/21 10:46 HCG, Qual Negative (Negative) 05/02/21 10:47 Urine Color Yellow (Yellow) 05/02/21 13:26 Urine Turbidity Clear (Clear) 05/02/21 13:26 Urine pH 5.0 (5.0-7.0) 05/02/21 13:26 Ur Specific [place] 1.020 (1.003-1.030) 05/02/21 13:26 Urine Protein 100 mg/dl mg/dL (Negative) 05/02/21 13:26 Urine Glucose (UA) Neg mg/dL (Negative) 05/02/21 13:26 Urine Ketones Neg mg/dL (Negative) 05/02/21 13:26 Urine Blood Neg (Negative) 05/02/21 13:26 Urine Nitrite Neg (Negative) 05/02/21 13:26 Urine Bilirubin Neg (Negative) 05/02/21 13:26 Urine Urobilinogen < 2.0 mg/dL (<2.0) 05/02/21 13:26 Ur Leukocyte Esterase Neg (Negative) 05/02/21 13:26 Urine WBC (Auto) 1.0 /HPF (0.0-6.0) 05/02/21 13:26 Urine RBC (Auto) < 1.0 /HPF (0.0-6.0) 05/02/21 13:26 U Epithel Cells (Auto) < 1.0 /HPF (0-13.0) 05/02/21 13:26 Urine Mucus Few /HPF 05/02/21 13:26 Coronavirus (PCR) Positive (Negative) A 05/03/21 08:30 Microbiology: Microbiology 05/02/21 10:45 Peripheral/Venous Blood Culture - Preliminary NO GROWTH AFTER 24 HOURS 05/02/21 10:45 Peripheral/Venous Blood Culture - Preliminary NO GROWTH AFTER 24 HOURS Nava/IV: Voiding Method Toilet Active Medications - Current Medications Current Medications: Generic Name Dose Route Start Last Admin Trade Name Freq PRN Reason Stop Dose Admin Acetaminophen 650 mg 05/02/21 17:46 05/04/21 05:49 Acetaminophen 325 Mg Tab PO 650 mg Q4H PRN Administration Pain MILD(1-3)/Fever >100.5/HOYT Ascorbic Acid 500 mg 05/03/21 10:00 05/03/21 23:21 Ascorbic Acid 500 Mg Tab PO 500 mg BID KOBY Administration Cholecalciferol 1,000 unit 05/03/21 10:00 05/03/21 12:01 Cholecalciferol (Vit D3) 1000 Unit (25 Mcg) Tab PO 1,000 unit QDAY KOBY Administration Dexamethasone 8 mg 05/03/21 10:00 05/03/21 12:01 Dexamethasone 4 Mg/Ml Vial IV 8 mg DAILY KOBY Administration Enoxaparin Sodium 40 mg 05/03/21 22:00 05/03/21 23:21 Enoxaparin 40 Mg/0.4 Ml Inj SUB-Q 40 mg BID KOBY Administration REMDESIVIR 100 mg/ Sodium 250 mls @ 500 mls/hr 05/04/21 21:00 Chloride IV 05/07/21 21:29 Q24HR@2100 KOBY Metoclopramide HCl 10 mg 05/02/21 17:46 Metoclopramide 10 Mg/2 Ml Inj IV Q6H PRN Nausea And Vomiting Ondansetron HCl 4 mg 05/02/21 17:46 05/03/21 08:41 Ondansetron 4 Mg/2 Ml Inj IV 4 mg Q8H PRN Administration Nausea And Vomiting Oxycodone/Acetaminophen 1 tab 05/02/21 17:46 Oxycodone /Acetaminophen 5-325mg Tab PO Q6H PRN Pain, Moderate (4-6) Pantoprazole Sodium 40 mg 05/02/21 22:00 05/03/21 23:21 Pantoprazole 40 Mg Tab PO 40 mg BID KOBY Administration Sodium Chloride 10 ml 05/02/21 17:43 Sodium Chloride 0.9% 10 Ml Flush Syringe IV PRN PRN LINE FLUSH Sodium Chloride 10 ml 05/02/21 22:00 05/03/21 23:21 Sodium Chloride 0.9% 10 Ml Flush Syringe IV 10 ml BID KOBY Administration Sodium Chloride 10 ml 05/02/21 17:46 Sodium Chloride 0.9% 10 Ml Flush Syringe IV PRN PRN LINE FLUSH Sodium Chloride 50 ml 05/03/21 21:00 05/03/21 23:20 Sodium Chloride 0.9% 50 Ml Ivpb IV 05/07/21 21:01 50 ml Q24HR@2100 KOBY Administration Zinc Sulfate 220 mg 05/03/21 10:00 05/03/21 12:01 Zinc Sulfate 220 Mg Cap PO 220 mg QDAY KOBY Administration
[2021-05-04] MEDS: ZINC SULFATE 220 MG CAP PO SCH (09:52)
[2021-05-04] MEDS: PANTOPRAZOLE 40 MG TAB PO SCH ×2 (09:52→22:01)
[2021-05-04] MEDS: CHOLECALCIFEROL (VIT D3) 1000 UNIT (25 mcg) TAB PO SCH (09:52)
[2021-05-04] MEDS: ENOXAPARIN 40 MG/0.4 ML INJ SUB-Q SCH ×2 (09:52→22:01)
[2021-05-04] MEDS: dexAMETHasone 4 MG/ML VIAL IV SCH (09:52)
[2021-05-04] MEDS: ASCORBIC ACID 500 MG TAB PO SCH ×2 (09:52→22:02)
[2021-05-04] MEDS: REMDESIVIR 100 MG in SODIUM CHLORIDE 0.9% 250ML 250 ML IV SCH (22:01)
[2021-05-04] MEDS: SODIUM CHLORIDE 0.9% 50 ML IVPB IV SCH (22:01)
[2021-05-04] MEDS ORDERED: POLYETHYLENE GLYCOL 3350 17 GM POWDER PO SCH (23:40)
[2021-05-05 06:25] LABS: Alanine Aminotransferase 14 units/L (7-56); Albumin 3.4 g/dL (3.9-5); Blood Urea Nitrogen 17 mg/dL (7-17); Calcium 8.3 mg/dL (8.4-10.2); Hemolysis Index 65
[2021-05-05 06:32] LABS: BUN/Creatinine Ratio 34
--- NOTE | 2021-05-05 09:26 | Progress Note ---
Assessment and Plan Assessment and plan: 45-year-old female with morbid obesity and GERD was recently diagnosed with coronavirus infection around 04/26/2021.. Patient has been taking nonsteroidal anti-inflammatory drugs for fever. Patient has cough and some shortness of breath. In the triage area patient was hypoxic and oxygen satur ations were 85% on room air. Patient is not on oxygen at home. No loss of taste or smell. Patient is unvaccinated. Patient is otherwise comfortable. (1) Acute respiratory failure with hypoxia Current Visit: Yes Status: Acute Plan to address problem: Patient is hypoxic with saturations of 84% on room air Titrate oxygen to keep to keep O2 sats above 92 Respiratory assessment and treatment protocol initiated IV Decadron initiated for possible coronavirus infection (2) SIRS (systemic inflammatory response syndrome) Current Visit: Yes Status: Acute Plan to address problem: Patient clinical picture consistent with Sirs CRP and LDH are elevated D-dimer and ferritin are normal (3) Bilateral pneumonia Current Visit: Yes Status: Acute Plan to address problem: Patient initiated on IV Zithromax and IV ceftriaxone Procalcitonin level is normal Will defer to ID regarding discontinuing the antibiotics (4) Pneumonia due to COVID-19 virus Current Visit: Yes Status: Acute Plan to address problem: Possible Covid infection Patient tested positive on April 26 We will repeat the coronavirus PCR test (5) Hypokalemia Current Visit: Yes Status: Acute Plan to address problem: Supplemented (6) HTN (hypertension) Current Visit: Yes Status: Chronic Qualifiers: Hypertension type: primary hypertension Qualified Code(s): I10 - Essential (primary) hypertension Plan to address problem: Not on any home antihypertensives We will trend the blood pressure and initiate antihypertensives as necessary (7) GERD (gastroesophageal reflux disease) Current Visit: Yes Status: Chronic Qualifiers: Esophagitis presence: without esophagitis Qualified Code(s): K21.9 - Gastro-esophageal reflux disease without esophagitis Plan to address problem: On Protonix (8) Morbid obesity Current Visit: Yes Status: Chronic Plan to address problem: Patient to be given referral to bariatric surgery as outpatient to Dr. Arauz (9) DVT prophylaxis Current Visit: Yes Status: Acute Plan to address problem: On Lovenox and GI prophylaxis 05/03 -Covid test pending -Patient is on Decadron, vitamin D, zinc, ascorbic acid -ID consulted -Obesity hypoventilation syndrome; patient uses CPAP at home and I ordered it -Patient was on 4 L of oxygen and titrate oxygen as tolerated. 05/04 -Covid test was positive and patient is on remdesivir and Decadron. -Patient is on 4 L of oxygen and wean off tolerated -ID consult appreciated -Patient is on CPAP for STELLA 05/05: Strongly encouraged the patient to use the BiPAP for sleep apnea at nighttime. Wean oxygen down to 3 L today and do a home oxygen evaluation for possible discharge tomorrow. Patient will complete steroids. We will also get additional dose of remdesivir today and hopefully tomorrow if going home before discharge. Weight loss recommended strongly 50 minutes of counseling provided to the patient History Interval history: Patient seen and examined although very sleepy and lethargic although awoken although initially confused. Was not using the CPAP last night Hospitalist Physical - Physical exam Narrative exam: VITAL SIGNS: Reviewed. GENERAL: The patient appears normally developed, morbidly obese stuporous but awakens with noxious stimuli vital signs as documented. HEAD: No signs of head trauma. EYES: Pupils are equal. Extraocular motions intact. EARS: Hearing grossly intact. MOUTH: Oropharynx is normal. NECK: No adenopathy, no JVD. CHEST: Chest with diminished breath sounds bilaterally. No wheezes, rales, or rhonchi. CARDIAC: Regular rate and rhythm. S1 and S2, without murmurs, gallops, or rubs. VASCULAR: No Edema. Peripheral pulses normal and equal in all extremities. ABDOMEN: Soft, non tender and non distended. No rebound or guarding, and no masses palpated. Bowel Sounds normal. MUSCULOSKELETAL: Good range of motion of all major joints. Extremities without clubbing, cyanosis or edema. NEUROLOGIC EXAM: A bit difficult to awaken but once awoken minimal confusion been became alert and oriented x 3 No focal sensory or strength deficits. Speech normal. Follows commands. PSYCHIATRIC: Mood normal. SKIN: detail exam as documented in skin assessment - Constitutional Vitals: Temp Pulse Resp BP Pulse Ox 98.8 F 78 20 117/72 95 05/05/21 05:14 05/05/21 05:14 05/05/21 05:14 05/05/21 05:14 05/05/21 05:14 General appearance: Present: mild distress, well-nourished Results - Labs CBC & Chem 7: 05/03/21 04:17 05/05/21 05:13 Labs: Laboratory Last Values WBC 7.3 K/mm3 (4.5-11.0) 05/03/21 04:17 RBC 5.22 M/mm3 (3.65-5.03) H 05/03/21 04:17 Hgb 14.4 gm/dl (10.1-14.3) H 05/03/21 04:17 Hct 45.9 % (30.3-42.9) H 05/03/21 04:17 MCV 88 fl (79-97) 05/03/21 04:17 MCH 28 pg (28-32) 05/03/21 04:17 MCHC 31 % (30-34) 05/03/21 04:17 RDW 17.4 % (13.2-15.2) H 05/03/21 04:17 Plt Count 242 K/mm3 (140-440) 05/03/21 04:17 Lymph % (Auto) 8.1 % (13.4-35.0) L 05/03/21 04:17 Bailey % (Auto) 5.7 % (0.0-7.3) 05/03/21 04:17 Eos % (Auto) 0.0 % (0.0-4.3) 05/03/21 04:17 Baso % (Auto) 0.1 % (0.0-1.8) 05/03/21 04:17 Lymph # (Auto) 0.6 K/mm3 (1.2-5.4) L 05/03/21 04:17 Bailey # (Auto) 0.4 K/mm3 (0.0-0.8) 05/03/21 04:17 Eos # (Auto) 0.0 K/mm3 (0.0-0.4) 05/03/21 04:17 Baso # (Auto) 0.0 K/mm3 (0.0-0.1) 05/03/21 04:17 Seg Neutrophils % 86.1 % (40.0-70.0) H 05/03/21 04:17 Seg Neutrophils # 6.3 K/mm3 (1.8-7.7) 05/03/21 04:17 D-Dimer 208.60 ng/mlDDU (0-234) 05/02/21 10:47 Sodium 142 mmol/L (137-145) 05/05/21 05:13 Potassium 4.2 mmol/L (3.6-5.0) 05/05/21 05:13 Chloride 97.1 mmol/L (98-107) L 05/05/21 05:13 Carbon Dioxide 38 mmol/L (22-30) H 05/05/21 05:13 Anion Gap 11 mmol/L 05/05/21 05:13 BUN 17 mg/dL (7-17) 05/05/21 05:13 Creatinine 0.5 mg/dL (0.6-1.2) L 05/05/21 05:13 Estimated GFR > 60 ml/min 05/05/21 05:13 BUN/Creatinine Ratio 34 % 05/05/21 05:13 Glucose 101 mg/dL (65-100) H 05/05/21 05:13 Hemoglobin A1c 6.4 % (4-6) H 05/03/21 04:17 Lactic Acid 1.30 mmol/L (0.7-2.0) 05/02/21 10:45 Calcium 8.3 mg/dL (8.4-10.2) L 05/05/21 05:13 Ferritin 50.2 ng/mL (10.0-200.0) 05/02/21 10:47 Total Bilirubin 0.50 mg/dL (0.1-1.2) 05/05/21 05:13 AST 19 units/L (5-40) 05/05/21 05:13 ALT 14 units/L (7-56) 05/05/21 05:13 Alkaline Phosphatase 104 units/L (35-129) 05/05/21 05:13 Lactate Dehydrogenase 266 units/L (91-180) H 05/02/21 10:47 C-Reactive Protein 7.80 mg/dL (0.00-1.30) H 05/02/21 10:47 Total Protein 7.0 g/dL (6.3-8.2) 05/05/21 05:13 Albumin 3.4 g/dL (3.9-5) L 05/05/21 05:13 Albumin/Globulin Ratio 0.9 % 05/05/21 05:13 Lipase 10 units/L (13-60) L 05/02/21 10:47 Procalcitonin < 0.05 ng/mL (<0.15) 05/02/21 10:46 HCG, Qual Negative (Negative) 05/02/21 10:47 Urine Color Yellow (Yellow) 05/02/21 13:26 Urine Turbidity Clear (Clear) 05/02/21 13:26 Urine pH 5.0 (5.0-7.0) 05/02/21 13:26 Ur Specific [place] 1.020 (1.003-1.030) 05/02/21 13:26 Urine Protein 100 mg/dl mg/dL (Negative) 05/02/21 13:26 Urine Glucose (UA) Neg mg/dL (Negative) 05/02/21 13:26 Urine Ketones Neg mg/dL (Negative) 05/02/21 13:26 Urine Blood Neg (Negative) 05/02/21 13:26 Urine Nitrite Neg (Negative) 05/02/21 13:26 Urine Bilirubin Neg (Negative) 05/02/21 13:26 Urine Urobilinogen < 2.0 mg/dL (<2.0) 05/02/21 13:26 Ur Leukocyte Esterase Neg (Negative) 05/02/21 13:26 Urine WBC (Auto) 1.0 /HPF (0.0-6.0) 05/02/21 13:26 Urine RBC (Auto) < 1.0 /HPF (0.0-6.0) 05/02/21 13:26 U Epithel Cells (Auto) < 1.0 /HPF (0-13.0) 05/02/21 13:26 Urine Mucus Few /HPF 05/02/21 13:26 Coronavirus (PCR) Positive (Negative) A 05/03/21 08:30 Microbiology: Microbiology 05/02/21 10:45 Peripheral/Venous Blood Culture - Preliminary NO GROWTH AFTER 48 HOURS 05/02/21 10:45 Peripheral/Venous Blood Culture - Preliminary NO GROWTH AFTER 48 HOURS Nava/IV: Voiding Method Toilet Active Medications - Current Medications Current Medications: Generic Name Dose Route Start Last Admin Trade Name Freq PRN Reason Stop Dose Admin Acetaminophen 650 mg 05/02/21 17:46 05/04/21 05:49 Acetaminophen 325 Mg Tab PO 650 mg Q4H PRN Administration Pain MILD(1-3)/Fever >100.5/HOYT Ascorbic Acid 500 mg 05/03/21 10:00 05/04/21 22:02 Ascorbic Acid 500 Mg Tab PO 500 mg BID KOBY Administration Cholecalciferol 1,000 unit 05/03/21 10:00 05/04/21 09:52 Cholecalciferol (Vit D3) 1000 Unit (25 Mcg) Tab PO 1,000 unit QDAY KOBY Administration Dexamethasone 8 mg 05/03/21 10:00 05/04/21 09:52 Dexamethasone 4 Mg/Ml Vial IV 05/11/21 10:01 8 mg DAILY KOBY Administration Enoxaparin Sodium 40 mg 05/03/21 22:00 05/04/21 22:01 Enoxaparin 40 Mg/0.4 Ml Inj SUB-Q 40 mg BID KOBY Administration REMDESIVIR 100 mg/ Sodium 250 mls @ 500 mls/hr 05/04/21 21:00 05/04/21 22:01 Chloride IV 05/07/21 21:29 500 mls/hr Q24HR@2100 KOBY Administration Metoclopramide HCl 10 mg 05/02/21 17:46 Metoclopramide 10 Mg/2 Ml Inj IV Q6H PRN Nausea And Vomiting Ondansetron HCl 4 mg 05/02/21 17:46 05/03/21 08:41 Ondansetron 4 Mg/2 Ml Inj IV 4 mg Q8H PRN Administration Nausea And Vomiting Oxycodone/Acetaminophen 1 tab 05/02/21 17:46 Oxycodone /Acetaminophen 5-325mg Tab PO Q6H PRN Pain, Moderate (4-6) Pantoprazole Sodium 40 mg 05/02/21 22:00 05/04/21 22:01 Pantoprazole 40 Mg Tab PO 40 mg BID KOBY Administration Polyethylene Glycol 17 gm 05/05/21 10:00 Polyethylene Glycol 3350 17 Gm Powder PO QDAY KOBY Sodium Chloride 10 ml 05/02/21 17:43 Sodium Chloride 0.9% 10 Ml Flush Syringe IV PRN PRN LINE FLUSH Sodium Chloride 10 ml 05/02/21 22:00 05/04/21 22:02 Sodium Chloride 0.9% 10 Ml Flush Syringe IV 10 ml BID KOBY Administration Sodium Chloride 50 ml 05/03/21 21:00 05/04/21 22:01 Sodium Chloride 0.9% 50 Ml Ivpb IV 05/07/21 21:01 50 ml Q24HR@2100 KOBY Administration Zinc Sulfate 220 mg 05/03/21 10:00 05/04/21 09:52 Zinc Sulfate 220 Mg Cap PO 220 mg QDAY KOBY Administration
[2021-05-05] MEDS: ENOXAPARIN 40 MG/0.4 ML INJ SUB-Q SCH ×2 (10:36→21:33)
[2021-05-05] MEDS: ASCORBIC ACID 500 MG TAB PO SCH ×2 (10:36→21:33)
[2021-05-05] MEDS: POLYETHYLENE GLYCOL 3350 17 GM POWDER PO SCH (10:36)
[2021-05-05] MEDS: ZINC SULFATE 220 MG CAP PO SCH (10:36)
[2021-05-05] MEDS: CHOLECALCIFEROL (VIT D3) 1000 UNIT (25 mcg) TAB PO SCH (10:36)
[2021-05-05] MEDS: dexAMETHasone 4 MG/ML VIAL IV SCH (10:36)
[2021-05-05] MEDS: PANTOPRAZOLE 40 MG TAB PO SCH ×2 (10:36→21:33)
--- NOTE | 2021-05-05 11:53 | Progress Note ---
Assessment and Plan Cultures: Blood culture no growth Covid PCR: Positive A/P: 45 old female past medical history morbid obesity admitted with COVID-19. #Severe COVID-19 pneumonia: Patient presented with a week of symptoms, chest x- ray with diffuse bilateral infiltrates, hypoxic. Inflammatory markers elevated, D-dimer 208, CRP 7.8, procalcitonin 0.05 #Acute hypoxemic respiratory failure: Likely secondary to COVID-19 infection. Currently on 4L NC. #Morbid obesity #Penicillin allergy: Tolerating ceftriaxone Recs: -steroids x 10 days, higher dose due to morbid obesity -complete remdesivir x 5 days -no abx indicated -no indication for Actemra -anticoagulation per protocol based on d-dimer ID will sign off. Please reconsult if needed. Iris Chester MD, FACP [facility] ([facility]) O: [phone] F: [phone] Subjective Date of service: 05/05/21 Interval history: Afebrile. On supplemental oxygen at 4 L/min. Objective - Exam Narrative Exam: Physical Exam (reviewed in chart to minimize risk of transmission) Constitutional: deferred Head, Ears, Nose: deferred Eyes: deferred Neck: deferred Oral: deferred Cardiovascular: deferred Respiratory: deferred GI: deferred Musculoskeletal: deferred Skin: deferred Hem/Lymphatic: deferred Psych: deferred Neurological: deferred - Constitutional Vitals: Vital Signs Temp Pulse Resp BP Pulse Ox 98.8 F 78 20 117/72 95 05/05/21 05:14 05/05/21 05:14 05/05/21 05:14 05/05/21 05:14 05/05/21 10:00 Temperature -Last 24 Hours Temperature 98.8 F Temperature 98.8 F Temperature 98.3 F - Labs CBC & Chem 7: 05/03/21 04:17 05/05/21 05:13 Labs: Abnormal lab results 05/05/21 Range/Units 05:13 Chloride 97.1 L (98-107) mmol/L Carbon Dioxide 38 H (22-30) mmol/L Creatinine 0.5 L (0.6-1.2) mg/dL Glucose 101 H (65-100) mg/dL Calcium 8.3 L (8.4-10.2) mg/dL Albumin 3.4 L (3.9-5) g/dL
[2021-05-05] MEDS: REMDESIVIR 100 MG in SODIUM CHLORIDE 0.9% 250ML 250 ML IV SCH (21:32)
[2021-05-05] MEDS: SODIUM CHLORIDE 0.9% 50 ML IVPB IV SCH (21:33)
[2021-05-06 06:41] LABS: Alanine Aminotransferase 15 units/L (7-56); Albumin 3.2 g/dL (3.9-5); Blood Urea Nitrogen 17 mg/dL (7-17); Calcium 8.5 mg/dL (8.4-10.2); Hemolysis Index 12
[2021-05-06 06:44] LABS: BUN/Creatinine Ratio 34
[2021-05-06] MEDS ORDERED: DEXAMETHASONE 4 MG TAB PO SCH (10:00)
[2021-05-06] MEDS: CHOLECALCIFEROL (VIT D3) 1000 UNIT (25 mcg) TAB PO SCH (10:01)
[2021-05-06] MEDS: ENOXAPARIN 40 MG/0.4 ML INJ SUB-Q SCH (10:01)
[2021-05-06] MEDS: ASCORBIC ACID 500 MG TAB PO SCH (10:01)
[2021-05-06] MEDS: ZINC SULFATE 220 MG CAP PO SCH (10:01)
[2021-05-06] MEDS: PANTOPRAZOLE 40 MG TAB PO SCH (10:01)
[2021-05-06] MEDS: POLYETHYLENE GLYCOL 3350 17 GM POWDER PO SCH (10:02)
--- NOTE | 2021-05-06 10:23 | Discharge Summary ---
Providers - Providers Date of Admission: 05/02/21 15:07 Attending physician: TARIQ CHAMORRO MD 05/02/21 17:46 Consult to Physician [CONS] Routine Comment: Consulting Provider: ROBERT DE LOS SANTOS Physician Instructions: Reason For Exam: Bilateral pneumonia Primary care physician: [employer] Hospitalization Reason for admission: Shortness of breath Condition: Fair Hospital course: 45-year-old female with morbid obesity and GERD was recently diagnosed with coronavirus infection around 04/26/2021.. Patient has been taking n onsteroidal anti-inflammatory drugs for fever. Patient has cough and some shortness of breath. In the triage area patient was hypoxic and oxygen saturations were 85% on room air. Patient is not on oxygen at home. No loss of taste or smell. Patient is unvaccinated. Patient is otherwise comfortable. (1) Acute respiratory failure with hypoxia Current Visit: Yes Status: Acute Plan to address problem: Patient is hypoxic with saturations of 84% on room air Titrate oxygen to keep to keep O2 sats above 92 Respiratory assessment and treatment protocol initiated IV Decadron initiated for possible coronavirus infection (2) SIRS (systemic inflammatory response syndrome) Current Visit: Yes Status: Acute Plan to address problem: Patient clinical picture consistent with Sirs CRP and LDH are elevated D-dimer and ferritin are normal (3) Bilateral pneumonia Current Visit: Yes Status: Acute Plan to address problem: Patient initiated on IV Zithromax and IV ceftriaxone Procalcitonin level is normal Will defer to ID regarding discontinuing the antibiotics (4) Pneumonia due to COVID-19 virus Current Visit: Yes Status: Acute Plan to address problem: Possible Covid infection Patient tested positive on April 26 We will repeat the coronavirus PCR test (5) Hypokalemia Current Visit: Yes Status: Acute Plan to address problem: Supplemented (6) HTN (hypertension) Current Visit: Yes Status: Chronic Qualifiers: Hypertension type: primary hypertension Qualified Code(s): I10 - Essential (primary) hypertension Plan to address problem: Not on any home antihypertensives We will trend the blood pressure and initiate antihypertensives as necessary (7) GERD (gastroesophageal reflux disease) Current Visit: Yes Status: Chronic Qualifiers: Esophagitis presence: without esophagitis Qualified Code(s): K21.9 - Gastro-esophageal reflux disease without esophagitis Plan to address problem: On Protonix (8) Morbid obesity Current Visit: Yes Status: Chronic Plan to address problem: Patient to be given referral to bariatric surgery as outpatient to Dr. Arauz (9) DVT prophylaxis Current Visit: Yes Status: Acute Plan to address problem: On Lovenox and GI prophylaxis 05/03 -Covid test pending -Patient is on Decadron, vitamin D, zinc, ascorbic acid -ID consulted -Obesity hypoventilation syndrome; patient uses CPAP at home and I ordered it -Patient was on 4 L of oxygen and titrate oxygen as tolerated. 05/04 -Covid test was positive and patient is on remdesivir and Decadron. -Patient is on 4 L of oxygen and wean off tolerated -ID consult appreciated -Patient is on CPAP for STELLA 05/05: Strongly encouraged the patient to use the BiPAP for sleep apnea at nighttime. Wean oxygen down to 3 L today and do a home oxygen evaluation for possible discharge tomorrow. Patient will complete steroids. We will also get additional dose of remdesivir today and hopefully tomorrow if going home before discharge. Weight loss recommended strongly 50 minutes of counseling provided to the patient 05/06: Patient seen and examined reports improvement this morning. She did sleep with her CPAP last night with good improvement this morning. Yesterday oxygen saturation was 87% on room air but improved to 94%. I had extensive conversation with her about weight loss 50 minutes of counseling provided she says she does not want to have any bariatric surgery she is going to lose weight on her own. She also understands that she needs to get tested for obstructive sleep apnea and the risk factors of this disease described in detail with her she verbalized understanding. She will complete steroid therapy at home. She i s to continue mask wearing and social distancing and strongly recommended that she get the Covid vaccine. Disposition: HOME / SELF CARE / HOMELESS Final Discharge Diagnosis (Prints w/discharge instructions): Acute hypoxic respiratory failure secondary to COVID-19 Time spent for discharge: 35 mins Core Measure Documentation - Palliative Care Palliative Care/ Comfort Measures: Not Applicable - Core Measures Any of the following diagnoses?: none Exam - Physical Exam Narrative exam: VITAL SIGNS: Reviewed. GENERAL: The patient appears normally developed, morbidly obese, awake vital signs as documented. HEAD: No signs of head trauma. EYES: Pupils are equal. Extraocular motions intact. EARS: Hearing grossly intact. MOUTH: Oropharynx is normal. NECK: No adenopathy, no JVD. CHEST: Chest with diminished breath sounds bilaterally. No wheezes, rales, or rhonchi. CARDIAC: Regular rate and rhythm. S1 and S2, without murmurs, gallops, or rubs. VASCULAR: No Edema. Peripheral pulses normal and equal in all extremities. ABDOMEN: Soft, non tender and non distended. No rebound or guarding, and no masses palpated. Bowel Sounds normal. MUSCULOSKELETAL: Good range of motion of all major joints. Extremities without clubbing, cyanosis or edema. NEUROLOGIC EXAM:Awake, alert and oriented x 3 No focal sensory or strength deficits. Speech normal. Follows commands. PSYCHIATRIC: Mood normal. SKIN: detail exam as documented in skin assessment - Constitutional Vitals: Temp Pulse Resp BP Pulse Ox 97.8 F 59 L 22 139/76 94 05/06/21 04:43 05/06/21 04:43 05/06/21 04:43 05/06/21 04:43 05/06/21 04:43 Plan Activity: advance as tolerated, fall precautions Diet: low fat Special Instructions: record daily weights, record daily BP diary, home oxygen via (nasal cannula @ 3 liters per minute) Follow up with: PRIMARY CARE, [Primary Care Provider] - 3-5 Days FEI GODWIN MD [Staff Physician] - 7 Days Prescriptions: dexAMETHasone [Decadron] 8 mg PO DAILY #12 tablet polyethylene glycoL 3350 [Miralax 3350] 17 gm PO QDAY #20 powd.pack Pantoprazole [Protonix TAB] 40 mg PO BID #60 tablet Ascorbic Acid [Vitamin C] 500 mg PO BID #60 tablet Cholecalciferol Vit D3 [Vitamin D3 1,000 UNIT TAB] 1,000 unit PO QDAY #30 tablet Zinc Sulfate 220 mg PO QDAY #30 capsule
[2021-05-06 13:25] VITALS: BP 133/71
== END 2021-05-06 16:55 | disposition home or self-care (01) | DRG 177 ==
LOC: ED 09:50 → 3A 15:07
PROVIDERS: ADMIT Internal Medicine; ATTEND Internal Medicine
PROC: 5A09357 Assistance with Respiratory Ventilation, Less than 24 Consecutive Hours, Continuous Positive Airway Pressure (ICD-10-PCS; principal; 2021-05-04)
PROC: XW033E5 Introduction of Remdesivir Anti-infective into Peripheral Vein, Percutaneous Approach, New Technology Group 5 (ICD-10-PCS; 2021-05-04)
PROC: 5A09357 Assistance with Respiratory Ventilation, Less than 24 Consecutive Hours, Continuous Positive Airway Pressure (ICD-10-PCS; 2021-05-06)
DX: U07.1 COVID-19 (principal); J96.01 Acute respiratory failure with hypoxia; R65.10 Systemic inflammatory response syndrome (SIRS) of non-infectious origin without acute organ dysfunction; Z68.44 Body mass index [BMI] 60.0-69.9, adult; J12.82 Pneumonia due to coronavirus disease 2019; E66.01 Morbid (severe) obesity due to excess calories; K21.9 Gastro-esophageal reflux disease without esophagitis; E78.00 Pure hypercholesterolemia, unspecified; E87.6 Hypokalemia; Z86.79 Personal history of other diseases of the circulatory system; Z88.0 Allergy status to penicillin; Z88.8 Allergy status to other drugs, medicaments and biological substances; Z98.51 Tubal ligation status; Z90.49 Acquired absence of other specified parts of digestive tract; Z79.82 Long term (current) use of aspirin; Z79.899 Other long term (current) drug therapy
CPT/HCPCS: 36415; 71275; 74177; 80053; 81001; 82140; 82728; 82947; 83036; 83615; 83690; 84145; 84703; 85025; 85379; 86140; 87040; 93005; 94660; 94760; G0378; J1100; J1650; J2405; J3010; J7030; J7050; J8540; Q9967; U0003

== ENCOUNTER 2021-10-08 12:27 | Outpatient (CLI) | payer MEDICAID ==
[2021-10-08 13:13] LABS: Hematocrit 34.1 % (30.3-42.9); Hemoglobin 11.5 gm/dl (10.1-14.3); Mean Corpuscular HGB Conc 34 % (30-34); Mean Corpuscular Volume 87 fl (79-97); Platelet Count 336 K/mm3 (140-440); Red Blood Count 3.93 M/mm3 (3.65-5.03); Red Cell Distribution Width 14.5 % (13.2-15.2)
[2021-10-08 13:38] LABS: Alanine Aminotransferase 10 units/L (7-56); Albumin 3.8 g/dL (3.9-5); Blood Urea Nitrogen 13 mg/dL (7-17); Calcium 9.7 mg/dL (8.4-10.2); Hemolysis Index 3
[2021-10-08 13:52] LABS: BUN/Creatinine Ratio 22
[2021-10-08 13:56] LABS: ABG Base Excess 6.7 mmol/L (-2.0-3.0); ABG HCO3 31.5 mmol/L (20.0-26.0); ABG Methemoglobin 0.4 % (0.0-1.5); ABG Oxygen Saturation 96.7 % (95.0-99.0); ABG PCO2 46.6 mm Hg; ABG PH 7.448 pH Units (7.350-7.450); ABG PO2 74.2 mm Hg (80.0-90.0)
--- NOTE | 2021-10-08 15:11 | Cat Scan Report ---
CT CHEST WITH CONTRAST INDICATION / CLINICAL INFORMATION: J12.82 NODULES OMNI 300 100 ML. TECHNIQUE: Axial CT images were obtained through the chest after 100 cc of Omnipaque [address] scans at this location are performed using CT dose reduction for ALARA by means of automated exposure control. COMPARISON: CTA chest dated 05/02/2021. FINDINGS: HEART: No significant abnormality. CORONARY ARTERY CALCIFICATION: Absent -- None. THORACIC AORTA: No significant abnormality. MEDIASTINUM / SAUMYA: No significant abnormality. PLEURA: No pleural effusion. No pneumothorax. LUNGS: No acute air space or interstitial disease. Previously described bilateral lung opacities and nodularity have resolved. No pulmonary nodule or mass. ADDITIONAL FINDINGS: None. UPPER ABDOMEN: Stable 2.7 cm left adrenal lesion which may represent an adenoma. Consider CT or MRI a drenal protocol if further evaluation is needed. SKELETAL SYSTEM: Stable mild to moderate thoracic spondylosis. No suspicious bony lesion or fracture. IMPRESSION: Lungs clear. Bilateral pulmonary opacities and nodularity have resolved since 05/02/2021. Unremarkable CT chest with contrast. Stable left adrenal nodule. Signer Name: Jovi Jack Jr, MD Signed: 10/08/2021 3:06 PM Workstation Name: [id number]
--- NOTE | 2021-10-08 15:14 | XRay Report ---
CHEST 2 VIEWS INDICATION / CLINICAL INFORMATION: PNEUMONIA. COMPARISON: None available. FINDINGS: SUPPORT DEVICES: None. HEART / MEDIASTINUM: No significant abnormality. LUNGS / PLEURA: No significant pulmonary or pleural abnormality. No pneumothorax. ADDITIONAL FINDINGS: Degenerative change throughout spine IMPRESSION: 1. No acute findings. Signer Name: Cesar Gonzales MD Signed: 10/08/2021 3:09 PM Workstation Name: [id number]
== END 2021-10-08 12:28 | disposition home or self-care (01) ==
LOC: CT 12:27
PROVIDERS: ATTEND Internal Medicine
DX: J18.9 Pneumonia, unspecified organism (principal); K21.9 Gastro-esophageal reflux disease without esophagitis; D64.9 Anemia, unspecified; J12.82 Pneumonia due to coronavirus disease 2019; G47.33 Obstructive sleep apnea (adult) (pediatric); M47.814 Spondylosis without myelopathy or radiculopathy, thoracic region; Z68.43 Body mass index [BMI] 50.0-59.9, adult
CPT/HCPCS: 36415; 36600; 71046; 71260; 80053; 82803; 85027; Q9967